=== PATIENT | male | born 1965 | race Caucasian/White ===

== ENCOUNTER 2016-09-03 13:57 | Outpatient (CLI) | payer OTHER ==
[~2016-09-03 13:57] MED LIST: FLUOXETINE HCL20 MG PO; PRILOSEC20 MG PO; PROAIR HFA IN
--- NOTE | 2016-09-04 12:43 | DIAGNOSTIC IMAGING REPORT ---
PROCEDURE: US LTD BREAST ULTRASOUND - LT INDICATION: Retroareolar left breast pain. TECHNIQUE: High resolution vlalecillo scale and color Doppler sonographic images of the left breast with limited comparison images of the right breast. COMPARISON: None. FINDINGS: There is a 12 mm hypoechoic area in the retroareolar region of the left breast with increased vascularity. Findings are compatible with gynecomastia. No evidence of underlying abnormality IMPRESSION: 1. Asymmetric left breast gynecomastia. 2. Findings discussed with the patient including the possibility of similar changes developing in the right breast. 3. Findings discussed with BETTE Mercado (covering for BETTE Ross). RESULT CODE: 2- Benign finding(s). A. A negative report should not delay biopsy if a dominant or clinically suspicious mass is present. 10-15% of cancers are not identified by x-ray. B. A negative report may reinforce clinical impression. C. Adenosis and dense breasts may obscure an underlying neoplasm. D. False positive reports average 6-10%. E.. A yearly screening mammogram is recommended. A reminder letter will be scheduled.
--- NOTE | 2016-09-04 12:43 | DIAGNOSTIC IMAGING REPORT ---
PROCEDURE: US LTD BREAST ULTRASOUND - LT INDICATION: Retroareolar left breast pain. TECHNIQUE: High resolution vallecillo scale and color Doppler sonographic images of the left breast with limited comparison images of the right breast. COMPARISON: None. FINDINGS: There is a 12 mm hypoechoic area in the retroareolar region of the left breast with increased vascularity. Findings are compatible with gynecomastia. No evidence of underlying abnormality IMPRESSION: 1. Asymmetric left breast gynecomastia. 2. Findings discussed with the patient including the possibility of similar changes developing in the right breast. 3. Findings discussed with BETTE Mercado (covering for BETTE Ross). RESULT CODE: 2- Benign finding(s). A. A negative report should not delay biopsy if a dominant or clinically suspicious mass is present. 10-15% of cancers are not identified by x-ray. B. A negative report may reinforce clinical impression. C. Adenosis and dense breasts may obscure an underlying neoplasm. D. False positive reports average 6-10%. E.. A yearly screening mammogram is recommended. A reminder letter will be scheduled.
== END 2016-09-03 23:00 ==
LOC: US SRH 13:57
DX: N62 Hypertrophy of breast (principal)

== ENCOUNTER 2016-11-01 13:51 | Outpatient (CLI) | payer OTHER ==
--- NOTE | 2016-11-01 16:42 | DIAGNOSTIC IMAGING REPORT ---
PROCEDURE: MG BILATERAL DIAGNOSTIC W/CAD INDICATION: LEFT CHEST WALL PAIN AND MASS TECHNIQUE: Standard CC and MLO views of each breast. CAD was used. The patient then went on to ultrasound where vallecillo scale and color Doppler sonographic imaging of the left breast with right for comparison was performed. COMPARISON: 09/03/2016 FINDINGS: Mammograms: Moderately dense heterogeneous glandular tissue is present in the central and lateral left breast. There is a trace amount of retroareolar glandular tissue on the right. No discrete mass, suspicious architectural distortion, or unusual microcalcification. Ultrasound: Dendritic dense glandular tissue in the retroareolar left breast is seen, stable to minimally increased in extent compared to the previous study. There is persistent, stable hyperemia through the glandular tissue. Much smaller amount of retroareolar glandularity is seen in the right breast with mild vascularity. No significant changes since the previous study. No new mass. IMPRESSION: 1. Changes of asymmetric, moderate left breast gynecomastia, minimally increased compared to the previous study. 2. Small amount of right breast gynecomastia. 3. No mammographic or sonographic evidence of malignancy. 4. Clinical follow-up as needed. Findings and recommendations were discussed with the patient. RESULT CODE: 1- Negative.
== END 2016-11-01 23:00 ==
LOC: MAM SRH 13:51
DX: R07.89 Other chest pain (principal); N62 Hypertrophy of breast

== ENCOUNTER → 2016-12-29 | Outpatient (CLI) | payer OTHER ==
[~2016-12-29] MED LIST changes: +ADVAIR DISKU1 INH; +NORCO1 TA1 PO; +ZYRTEC ALLERGY10 MG PO
--- NOTE | 2016-12-29 12:38 | DIAGNOSTIC IMAGING REPORT ---
PROCEDURE: MR CERVICAL SPINE W/O CONT INDICATION: CERVICAL RADICULOPATHY LEFT TECHNIQUE: Noncontrast T1, T2, and STIR sagittal images. T2 and gradient axial images. COMPARISON: None. FINDINGS: Normal alignment without fracture or suspicious osseous lesion. Moderately severe C5-6 and C6-7 disc vertebral degenerative changes. Straightening of the cervical spine. Normal craniocervical junction and cord. C2-3: Minor disc bulge. Facet arthropathy with mild bilateral foraminal stenosis. No spinal stenosis. C3-4: Moderate left foraminal disc bulge/spur complex with facet arthropathy with moderate left foraminal stenosis. No spinal stenosis. C4-5: Moderate left foraminal disc bulge/spur complex and facet arthropathy resulting in moderate left foraminal stenosis. Mild spinal stenosis. C5-6: Large broad-based disc bulge/spur complex and facet arthropathy with moderate right and severe left foraminal stenosis. There is mild spinal stenosis. C6-7: Large broad-based disc bulge/spur complex with facet arthropathy with moderate right and severe left foraminal stenosis. Mild spinal stenosis. C7-T1: Normal appearance. IMPRESSION: 1. Moderately severe degenerative changes with multilevel disc bulges most prominent at C5-6 and C6-7. 2. Straightening of the cervical spine suggestive of muscular spasm 3. Mild bilateral C2-3, moderate left C3-4, C4-5, moderate right and severe left C5-6, and moderate right and severe left C6-7 foraminal stenosis 4. Mild spinal stenosis at C4-5, C5-6 and C6-7.
== END ==
LOC: MRI SRH 09:20
DX: M47.812 Spondylosis without myelopathy or radiculopathy, cervical region (principal); M50.222 Other cervical disc displacement at C5-C6 level; M50.223 Other cervical disc displacement at C6-C7 level

== ENCOUNTER 2017-01-02 08:23 | Observation (INO) | payer OTHER ==
[~2017-01-02] VITALS: Ht 182.9 cm; Wt 107.5 kg
[~2017-01-02 08:23] MED LIST changes: -ADVAIR DISKU1 INH; -NORCO1 TA1 PO; -ZYRTEC ALLERGY10 MG PO
--- NOTE | 2017-01-02 10:34 | DIAGNOSTIC IMAGING REPORT ---
PROCEDURE: ABDOMEN/PELVIS WITH CONTRAST CLINICAL INDICATION: ABDOMINAL PAIN TECHNIQUE: 125 ml of Isovue 300 were injected intravenously and axial images were obtained of the abdomen and pelvis with sagittal and coronal reformations. COMPARISON: None. FINDINGS: ABDOMEN: Mild hepatomegaly and moderate hepatic steatosis. Relative sparing in the gallbladder fossa. Clear lung bases. Normal sized heart. No hiatal hernia. The liver, gallbladder, adrenal glands, kidneys, pancreas and spleen are normal. The abdominal aorta is normal in its course and caliber. No atherosclerosis. There are no suspicious calcifications, retroperitoneal adenopathy or masses. The stomach, upper bowel loops, and mesentery are normal. There is a fat containing umbilical hernia with surrounding subcutaneous inflammation. There is stranding of the herniated fat and trace stranding within the periumbilical intraperitoneal fat. The neck is approximately 7 mm in greatest diameter. PELVIS: The appendix and pelvic small bowel loops are normal. Normal amount of stool in the colon and rectum. The prostate gland, seminal vesicles, urinary bladder, and pelvic vessels are normal. No adenopathy, free fluid, or pelvic mass. Intact osseous structures. IMPRESSION: 1. Incarcerated fat containing umbilical hernia with a narrow neck. 2. Mild hepatomegaly and moderate hepatic steatosis. 3. Discussed with Dr. Conner in the emergency room. All CT scans at this facility use dose modulation, iterative reconstruction, and/or weight-based dosing when appropriate to reduce radiation dose to as low as reasonably achievable.
--- NOTE | 2017-01-02 10:37 | ED CLINICAL REPORT ---
Clinical Report - Physicians/Mid Levels [facility] [address] [place] [address] 01/02/2017 8:23 [id number] Time Seen: 08:33 Jan 02 2017. Arrived- By private vehicle. Historian- patient. HISTORY OF PRESENT ILLNESS Chief Complaint: ABDOMINAL PAIN. At its maximum, severity described as moderate. When seen in the E.D., severity described as moderate. Modifying factors- worsened by movement. Relieved by rest. It is described as "pain". No radiation. It is described as located in the periumbilical area. 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 and is still present. It was gradual in onset and has been waxing/waning. The patient has had nausea. No vomiting or diarrhea. Similar symptoms previously: None. Recent medical care: Not recently seen/assessed. REVIEW OF SYSTEMS No black stools, hematemesis, difficulty with urination, pain with urination or urinary frequency. No bloody stools, fever, headache, sore throat or chest pain. No difficulty breathing or cough. The patient has had mild back pain. It has been similar to previous symptoms. All systems otherwise negative, except as recorded above. PAST HISTORY Carpal Bone Fracture. Vomiting. Gastritis. Gastroesophageal Reflux Disease. Depression. Anxiety Reaction. URI. Asthma SURGERIES: Right shoulder surgery. Shoulder Surgery. Medications: Albuterol Sulfate HFA Inhalation 2 puffs, 4x a day. PriLOSEC Oral 20 mg, daily. Allergies: Aspirin. SOCIAL HISTORY Never smoker. Alcohol use. Patient is a longstanding alcoholic. History of drug use: marijuana. Is a local resident. ADDITIONAL NOTES The nursing notes have been reviewed. PHYSICAL EXAM Vital Signs: 01/02/2017 08:29 BP: 135/78. HR: 97. RR: 19. O2 saturation: 98%. Temp: 98.1 F. Pain level now: 8/10. Appearance: Alert. Oriented X3. Patient in moderate distress. Eyes: Pupils equal, round and reactive to light. Eyes normal inspection. No scleral icterus or pale conjunctivae. ENT: Pharynx normal. No pharyngeal erythema or tonsillar exudate. The mucous membranes are not dry. Neck: Normal inspection. Neck supple. CVS: Heart sounds normal. Pulses normal. Respiratory: No respiratory distress. Breath sounds normal. Abdomen: Moderate tenderness in the periumbilical area (redness and small mass palpated over the umbilicus (inferior aspect)). Moderate, tender mass present in the suprapubic area. No pulsatile mass present. No rebound tenderness, distention or guarding. The bowel sounds are not abnormal. Back: Normal inspection. Skin: Skin warm and dry. Extremities: Extremities exhibit normal ROM. No lower extremity edema. Neuro: No motor deficit. LABS, X-RAYS, AND EKG EKG: EKG time: (10:29). Normal sinus rhythm. Rate: 85. Normal P waves. Normal SHERIN. Normal QRS complex. Normal axis. Normal ST and T waves. The study has been interpreted contemporaneously by me. The EKG appears to be a good tracing. Chest X-ray: No acute disease. Normal lung markings present. Normal heart size. Mediastinum normal. Great vessels normal. No infiltrate. Views: AP (portable). Technique: good. The X-rays were interpreted contemporaneously by me. Laboratory Tests: UA-Culture if indicated: (CONSUELO: 01/02/2017 09:41) ( MsgRcvd 01/02/2017 10:04) Final results Test Result Flag Units (Reference) URINE COLOR YELLOW URINE APPEARANCE CLEAR URINE GLUCOSE NEGATIVE (NEGATIVE) URINE BILIRUBIN NEGATIVE (NEGATIVE) URINE KETONE NEGATIVE (NEGATIVE) URINE SPECIFIC GRAVITY <= 1.005 L (1.010-1.030) URINE PH 6.0 (5.0-8.0) URINE PROTEIN NEGATIVE (NEGATIVE) URINE UROBILINOGEN 0.2 EU/dL (0.2-1.0) URINE NITRITE NEGATIVE (NEGATIVE) URINE BLOOD NEGATIVE (NEGATIVE) URINE LEUK ESTERASE NEGATIVE (NEGATIVE) URINE RBC RARE rbc/hpf (0-1) URINE WBC NONE SEEN wbc/hpf (0-1) URINE EPITHELIAL CELLS NONE SEEN EPI/hpf (0-5) URINE BACTERIA NONE SEEN (NONE SEEN) URINE COMMENT CULT NOT INDICATED URINE CULTURES ARE SET-UP BASED ON THE FOLLOWING CRITERIA:POSITIVE NITRITEPOSITIVE LEUKOCYTE ESTERASEGREATER THAN 10 WHITE BLOOD CELLSMODERATE (2+) OR GREATER BACTERIA CBC w Diff: (CONSUELO: 01/02/2017 08:54) ( MsgRcvd 01/02/2017 09:03) Final results Test Result Flag Units (Reference) WHITE BLOOD COUNT 9.9 K/uL (4.5-11.5) RED BLOOD COUNT 4.51 M/uL (4.50-5.90) HEMOGLOBIN 14.8 gm/dL (13.5-17.5) HEMATOCRIT 42.8 % (41.0-53.0) MEAN CELL VOLUME 95 fL (80-100) MEAN CORPUSCULAR HGB 33 pg (26-34) MEAN CORPUSCULAR HGB CONC 35 g/dL (31-37) RED CELL DISTRIBUTION WIDTH 12.6 % (11.6-14.8) PLATELET COUNT 234 K/uL (150-400) NEUTROPHIL % 67.9 % (50-75) LYMPH % 26.0 % (25-40) MONO % 4.9 % (3-14) EOSINOPHIL % 0.8 % (0-4) BASOPHIL % 0.4 % (0-2) Urine Drug Screen: (CONSUELO: 01/02/2017 09:41) ( MsgRcvd 01/02/2017 10:06) Final results Test Result Flag Units (Reference) AMPHETAMINE/METHAMPHETAMINE NEGATIVE (NEGATIVE) BARBITURATE NEGATIVE (NEGATIVE) BENZODIAZEPINE NEGATIVE (NEGATIVE) CANNABINOID POSITIVE H (NEGATIVE) COCAINE NEGATIVE (NEGATIVE) ECSTASY NEGATIVE (NEGATIVE) METHADONE NEGATIVE (NEGATIVE) OPIATE NEGATIVE (NEGATIVE) The urine drug screen is a qualitative screening test fordrug overdose and abuse. All screen results should beconsidered as presumptive.Drugs screened for are as follows:BenzodiazepinesCocaineAmphetamines/MetamphetaminesTHC (Tetrahydrocannabinol)OpiatesBarbituratesEcstasyMethadonePositive results are unconfirmed. For confirmation, notifythe lab for the specimen to be sent to the reference lab.All confirmations must be performed by a differentmethodology.The ingestion of natural herbal and plant productscontaining Ephedra/Ephedra metabolites can produce in urineone or more substances capable of cross reacting withamphetamine/methamphetamine immunoassays. These testsprovide a preliminary result only. A more specificalternative chemical method must be used to obtain aconfirmed analytical result. Lipase: (CONSUELO: 01/02/2017 08:54) ( MsgRcvd 01/02/2017 09:51) Final results Test Result Flag Units (Reference) LIPASE 126 U/L (73-393) AMYLASE 39 U/L (25-115) CMP: (CONSUELO: 01/02/2017 08:54) ( MsgRcvd 01/02/2017 09:30) Final results Test Result Flag Units (Reference) GLUCOSE 133 H mg/dL (70-110) BUN 11 mg/dL (7-18) CREATININE 0.8 mg/dL (0.6-1.3) Estimated GFR >60 mL/min Estimated GFR- >60 mL/min Note: Persistent reduction over 3 months in eGFR<60 mL/min/1.73 m2 defines CKD. Patients with eGFR values>=60 mL/min/1.73 m2 may also have CKD if evidence ofpersistent proteinuria. Additional information may be foundat www.kidney.org. SODIUM 143 mmol/L (136-145) POTASSIUM 3.5 mmol/L (3.5-5.1) CHLORIDE 106 mmol/L (98-107) CARBON DIOXIDE 26 mmol/L (21-32) CALCIUM 8.6 mg/dL (8.5-10.1) TOTAL PROTEIN 7.2 g/dL (6.4-8.2) ALBUMIN 3.7 g/dL (3.3-5.0) BILIRUBIN, TOTAL 0.4 mg/dL (0.0-1.0) ALKALINE PHOSPHATASE 59 U/L (46-116) AST (SGOT) 30 U/L (15-37) ALT (SGPT) 58 U/L (12-78) . Pulse Oximetry: 01/02/2017 08:29 O2 saturation: 98%. (FIO2 - room air). Interpretation: normal. PROGRESS AND PROCEDURES Course of Care: Normal Saline 1 liter IVPB given. Zofran 4 mg IVP given. Dilaudid 0.5 mg + 0.5 mg IVP given. 09:00. Care transferred from Dr Thakur to myself secondary to shift change Pt with incarcerated umbilical hernia and will need surgical treatment. No bowel issues. Discussed case with on-call health care provider, (Huong call placed 10:32 call returned 10:36 call placed 10:48 call returned 10:50). Reviewed test results. Agreed upon treatment plan. Health care provider will see patient in hospital. Refers case to other health care provider. Discussed case with health care provider (Chelsea call placed 10:37 - states he is "maxed out and this is my last patient" - will request Dr Borja admit). Reviewed test results. Agreed upon treatment plan. Refers case to other health care provider. Patient/family counseled. Old ED records reviewed. Transition orders written. Disposition: Observation in Acute Care. Condition: stable and improved. CLINICAL IMPRESSION Chronic substance abuse- alcohol, marijuana. No intoxication, delusions or anxiety. Incarcerated umbilical hernia. No reducible hernia, recurrent hernia, obstruction or gangrene. (Electronically signed by Timothy Conner DO 01/02/2017 13:31)
--- NOTE | 2017-01-02 10:37 | ED ORDER SUMMARY ---
..... Patient: HAM WILLIAM OrderSheet [facility] VisitID: [id number] [place] [address] 51y, M Registration Date/Time: 01/02/2017 ORDER SHEET Weight: 104.3 kg (stated) Allergies: Aspirin GENERAL ORDERS: CT Abd/Pel w Cont (No) (pending) Urgent (08:01/02/2017 Hector CLAUDIO) (Ack 8:38 KHoerner) (8:57 KPage-Kuchan R.N.) CBC w Diff Urgent (:01/02/2017 Hector CLAUDIO) (Ack 8:38 KHoerner) (8:57 KPage-Kuchan R.N.) CMP Urgent (:01/02/2017 Hector CLAUDIO) (Ack 8:38 KHoerner) (8:57 KPage-Kuchan R.N.) Amylase Urgent (09:01/02/2017 PHutchinson DO) (Ack 9:24 KHoerner) (9:40 KHoerner) Lipase Urgent (:01/02/2017 PHutchinson DO) (Ack 9:24 KHoerner) (9:40 KHoerner) Urine Drug Screen Urgent (09:01/02/2017 PHutchinson DO) (Ack 9:24 KHoerner) (9:40 KHoerner) UA-Culture if indicated Urgent (09:01/02/2017 PHutchinson DO) (Ack 9:24 KHoerner) (9:40 KHoerner) Chest 1V Urgent (10:01/02/2017 PHutchinson DO) (Ack 10:22 KHoerner) (10:42 KPage-Kuchan R.N.) EKG - ER Stat (:01/02/2017 PHchinson DO) (Ack 10:22 KHoerner) (10:30 TBergley) Call (Place call to): (Dr Borja) (10:33 01/02/2017 PHutchinson DO) (Ack 10:35 KHoerner) (10:36 KHoerner) Ice (to umbilical area) (10:34 01/02/2017 [facility]) (10:42 Mabel R.N.) Call (Place call to): (Dr Tran) (10:38 01/02/2017 [facility]) (Ack 10:40 KHoerner) (10:40 KHoerner) MEDICATION ORDERS: IV FLUIDS: IV NS : initial bolus 500 mL (1000 mL/hr), then 250 mL/hr for 2h (NOW); Routine (08:37 01/02/2017 Hector CLAUDIO) (8:59 Mabel R.N.) Dilaudid IV 0.5 mg (NOW) (08:37 01/02/2017 Hector CLAUDIO) (8:59 Mabel R.N.) Zofran IV 4 mg (NOW) (08:37 01/02/2017 Hector CLAUDIO) (8:59 Mabel R.N.) Dilaudid IV 0.5 mg (may repeat x 1 prn pain) (09:30 01/02/2017 [facility]) (10:01 Mabel R.N.) IV NS with Normal Saline 1 Liter: initial bolus none -, then 250 mL/hr for X1 (NOW) (13:04 01/02/2017 Mabel R.N. verbal order read back to [facility]) (13:06 Mabel R.N.) ORDER SHEET NOTES: [Electronically signed by Sonja Correa R.N. (13:13 01/02/2017)] [Electronically signed by Timothy Conner DO (13:31 01/02/2017)] [Electronically locked/signed by Sonja Correa R.N. (13:13 01/02/2017)]
--- NOTE | 2017-01-02 10:37 | ED NURSING NOTES ---
Clinical Report - Nurses [facility] [address] [place] [address] 01/02/2017 8:23 Patient: HAM WILLIAM TRIAGE Triage time 08:Jan 02 2017. Chief Complaint: ABDOMINAL PAIN and (pt with 3 days of isauro umbilical pain "feels like a golf ball is under it, the lump is getting bigger, bigger"). Alert. No acute distress. SEPSIS SCREEN: Sepsis Screen. Negative (no infection suspected/documented). --08:36 Sonja Correa R.N. 08:29 01/02/17. BP: 135/78. HR: 97. RR: 19. O2 saturation: 98%. Temp: 98.1 F. Pain level now: 03/28. --08:36 Sonja Correa R.N. Weight: 104.3 kg stated. Height/Length: 74 inches Per Patient. BMI: 29.5. --08:32 Sonja Correa R.N. Medications Albuterol Sulfate HFA Inhalation 2 puffs, 4x a day. PriLOSEC Oral 20 mg, daily. --08:33 Sonja Correa R.N. Allergies Aspirin. --08:33 Sonja Correa R.N. History Arrived by private vehicle. Historian: patient. Onset. (3 days ago). 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 PAST MEDICAL HX: Immunizations: up-to-date. SOCIAL HX: Never smoker. Alcohol use; consumes three liquor daily. Last drink was less than 24 hours ago. ("I'm an alcoholic"). History of drug use: marijuana. No recent travel. No known contact with a sick individual. ABUSE ASSESSMENT: No report of abuse. SELF HARM ASSESSMENT: A self harm assessment was performed. The patient answered "no" to the question "Have you recently felt down, depressed, or hopeless?", "Have you noticed less interest or pleasure in doing things?", "Do you have thoughts of harming or killing yourself?", "Are you here because you tried to hurt yourself?", "Have you ever tried to hurt yourself before today?", "Have you recently had thoughts about harming or killing others?" and "Do you have any dangerous items in your possession?". FALL RISK ASSESSMENT: Fall risk assessment completed. No fall risk identified. NUTRITIONAL RISK ASSESSMENT: The nutritional risk assessment revealed no deficiencies. FUNCTIONAL ASSESSMENT: Functional assessment: no impairments noted. LEARNING NEEDS ASSESSMENT: The learning needs assessment revealed no barriers. SKIN INTEGRITY ASSESSMENT: Skin integrity risk assessment completed. No skin integrity risk identified. --08:36 Sonja Correa R.N. PROBLEMS: Abnormal Liver Function Test. Myofascial Strain. Carpal Bone Fracture. Gastritis. Gastroesophageal Reflux Disease. Reflux. Depression. Anxiety Reaction. URI. Asthma. --08:33 Sonja Correa R.N. ADDITIONAL SURGERIES: Right shoulder surgery. --08:33 Sonja Correa R.N. Interventions ID and allergy band on patient. To treatment room. --08:36 Sonja Correa R.N. PHYSICAL ASSESSMENT Ambulatory to room. Patient gowned. GENERAL / NEURO / PSYCH: Alert. Oriented X 4. Appears in pain. HEENT: Mucous membranes are pink. RESPIRATORY: Respirations not labored. Breath sounds within normal limits. CVS: Capillary refill less than 2 seconds. GI / : Abdomen soft. Abdominal tenderness in the periumbilical area. Bowel sounds within normal limits. SKIN: Skin is warm and dry. --08:36 Sonja Correa R.N. NURSING PROGRESS NOTES Pulse oximeter and NIBP monitor placed on patient. Patient gowned. Head of bed elevated. Two patient identifiers checked. Call light placed in reach. Side rails up x 1. Bed placed in lowest position. Brakes of bed on. Patient ready for evaluation- chart flagged. ( at bedside). --08:37 Sonja Correa R.N. 08:48 01/02/2017 Site #1 started via IV in the right forearm with an 20g angiocath; one attempt. Blood drawn: rainbow set. Labeled in the presence of the patient and sent to the lab. Saline lock flushed with 10 mL saline. --08:58 Sonja Correa R.N. 08:48 01/02/2017 Started bag #1 1000 mL IV Fluids IV NS (Saline); at 500 mL/hr via site #1 via IV pump. Allergies verified and confirmed 5 rights. IV patency established. IV site checked: no pain, redness, or swelling. IV flushed thoroughly pre- and post-medication administration. --08:59 Sonja Correa R.N. 08:54 01/02/2017 Dilaudid (HYDROmorphone HCl PF) IVP 0.5 mg given. via site #1. Allergies verified, confirmed 5 rights and sedative warning given to the patient. IV patency established. IV site checked: no pain, redness, or swelling. IV flushed thoroughly pre- and post-medication administration. IVP given by RN. --08:59 Sonja Correa R.N. 08:54 01/02/2017 Zofran (Ondansetron HCl) IVP 4 mg given. via site #1. Allergies verified and confirmed 5 rights. IV patency established. IV site checked: no pain, redness, or swelling. IV flushed thoroughly pre- and post-medication administration. IVP given by RN. --08:59 Sonja Correa R.N. Pulse oximeter and NIBP monitor placed on patient; (monitoring pulse ox as pt given narcotic pain meds). Call light placed in reach. Side rails up. Bed placed in lowest position. Brakes of bed on. ( pt provided urinal to void,). --09:25 Sonja Correa R.N. ( pt reports "Not much change, it still really hurts" notified with order to repeat pain meds). --09:32 Sonja Correa R.N. 09:01 01/02/2017 Dilaudid IVP Response: no adverse reaction symptoms are the same. The patient feels the same. --10:01 Sonja Correa R.N. 09:02 01/02/2017 Zofran IVP Response: no adverse reaction. --10:02 Sonja Correa R.N. 09:34 01/02/2017 Dilaudid (HYDROmorphone HCl PF) IVP 0.5 mg given. via site #1. Sedative warning given to the patient and patient's family. IV patency established. IV site checked: no pain, redness, or swelling. IV flushed thoroughly pre- and post-medication administration. IVP given by RN. --10:01 Sonja Correa R.N. 10:30 01/02/17. EKG time: (1029 AM). EKG was ordered, performed by a tech and shown to the ED physician. --10:30 Janine Reyna ( pt remains with pain 01/26, ice bag to abd per MD, plan is for pt to admit to hospital. family at bedside). --10:48 Sonja Correa R.N. 09:44 01/02/17. BP: 136/94. HR: 87. RR: 17. O2 saturation: 98% on room air. --10:48 Sonja Correa R.N. 10:48 01/02/17. BP: 134/88. HR: 79. RR: 17. O2 saturation: 97%. --10:48 Sonja Correa R.N. 11:07 01/02/2017 IV Fluids IV NS Discontinued: STOPPED. Total amount infused: 1000 mL. IV patency established. IV site checked: no pain, redness, or swelling. IV flushed thoroughly. --13:07 Sonja Correa R.N. 11:23 01/02/2017 Started bag #2 1000 mL IV Fluids IV NS (Saline); at 250 mL/hr via site #1 via dial-a-flow. Allergies verified. IV patency established. IV site checked: no pain, redness, or swelling. IV flushed thoroughly pre- and post-medication administration. --13:06 Sonja Correa R.N. 13:06 01/02/2017 IV Fluids IV NS Continued: at the rate of 250 mL/hr. 575 mL remaining bag #2. IV patency established. IV site checked: no pain, redness, or swelling. IV flushed thoroughly. --13:06 Sonja Correa R.N. Intake & Output IV fluids: 1500 mL. Urine: 825 mL, with return of yellow-colored clear urine. --13:00 Sonja Correa R.N. DISPOSITION / DISCHARGE Admitted to Acute Care ( B). Transported via stretcher by [facility]. Report was given to a nurse via a phone call. Report included patient's care, treatment, medications, reviewed medication reconcilliation, and condition (including any recent changes or anticipated changes). All questions were answered. Report was acknowledged and care was transferred. (Viviana HESS). --12:48 Sonja Correa R.N. Condition at departure: improved. ( preparing pt for transport to ). --12:52 Sonja Correa R.N. 12:51 01/02/17. BP: 125/91. HR: 81. RR: 17. O2 saturation: 97%. Pain level now: 11/26. --12:52 Sonja Correa R.N. Locked/Released at 01/02/2017 13:13 by Sonja Correa R.N.
--- NOTE | 2017-01-02 10:37 | ED ORDER SUMMARY ---
..... Patient: HAM WILLIAM OrderSheet [facility] VisitID: [id number] [place] [address] 51y, M Registration Date/Time: 01/02/2017 ORDER SHEET Weight: 104.3 kg (stated) Allergies: Aspirin GENERAL ORDERS: CT Abd/Pel w Cont (No) (pending) Urgent (08:01/02/2017 Hector CLAUDIO) (Ack 8:38 KHoerner) (8:57 KPage-Kuchan R.N.) CBC w Diff Urgent (:01/02/2017 Hector CLAUDIO) (Ack 8:38 KHoerner) (8:57 KPage-Kuchan R.N.) CMP Urgent (:01/02/2017 Hector CLAUDIO) (Ack 8:38 KHoerner) (8:57 KPage-Kuchan R.N.) Amylase Urgent (09:01/02/2017 PHutchinson DO) (Ack 9:24 KHoerner) (9:40 KHoerner) Lipase Urgent (:01/02/2017 PHutchinson DO) (Ack 9:24 KHoerner) (9:40 KHoerner) Urine Drug Screen Urgent (09:01/02/2017 PHutchinson DO) (Ack 9:24 KHoerner) (9:40 KHoerner) UA-Culture if indicated Urgent (09:01/02/2017 PHutchinson DO) (Ack 9:24 KHoerner) (9:40 KHoerner) Chest 1V Urgent (10:01/02/2017 PHutchinson DO) (Ack 10:22 KHoerner) (10:42 KPage-Kuchan R.N.) EKG - ER Stat (:01/02/2017 PHchinson DO) (Ack 10:22 KHoerner) (10:30 TBergley) Call (Place call to): (Dr Borja) (10:33 01/02/2017 PHutchinson DO) (Ack 10:35 KHoerner) (10:36 KHoerner) Ice (to umbilical area) (10:34 01/02/2017 [facility]) (10:42 Mabel R.N.) Call (Place call to): (Dr Tran) (10:38 01/02/2017 [facility]) (Ack 10:40 KHoerner) (10:40 KHoerner) MEDICATION ORDERS: IV FLUIDS: IV NS : initial bolus 500 mL (1000 mL/hr), then 250 mL/hr for 2h (NOW); Routine (08:37 01/02/2017 Hector CLAUDIO) (8:59 Mabel R.N.) Dilaudid IV 0.5 mg (NOW) (08:37 01/02/2017 Hector CLAUDIO) (8:59 Mabel R.N.) Zofran IV 4 mg (NOW) (08:37 01/02/2017 Hector CLAUDIO) (8:59 Mabel R.N.) Dilaudid IV 0.5 mg (may repeat x 1 prn pain) (09:30 01/02/2017 [facility]) (10:01 Mabel R.N.) IV NS with Normal Saline 1 Liter: initial bolus none -, then 250 mL/hr for X1 (NOW) (13:04 01/02/2017 Mabel R.N. verbal order read back to [facility]) (13:06 Mabel R.N.) ORDER SHEET NOTES: [Electronically signed by Sonja Correa R.N. (13:13 01/02/2017)] [Electronically signed by Timothy Conner DO (13:31 01/02/2017)] [Electronically locked/signed by Sonja Correa R.N. (13:13 01/02/2017)]
--- NOTE | 2017-01-02 11:22 | DIAGNOSTIC IMAGING REPORT ---
PROCEDURE: XR CHEST 1 VIEW INDICATION: PRE OP TECHNIQUE: Portable AP view 11:00 a.m. COMPARISON: None. FINDINGS: Lungs are clear. Heart and mediastinum are normal. Thorax is normal. IMPRESSION: 1. Negative chest.
--- NOTE | 2017-01-02 13:32 | ED MAR SUMMARY ---
..... Medication Administration Record [facility] [address] [place] [address] Patient: HAM WILLIAM Visit ID: [id number] 51y, M Weight: 104.3 kg Height/Length: 74 in BMI: 29.5 ALLERGIES: Aspirin Start 08:48 01/02/2017 Sonja Correa R.N., Stop 11:07 01/02/2017 Sonja Correa R.N. Medication Administered: IV NS (SALINE), Dose: IV Fluids, Rate: 500 mL/hr, Dispensed: 1000 mL bag, Site: #1 right forearm. Medication Ordered: IV NS : initial bolus 500 mL (1000 mL/hr), then 250 mL/hr for 2h (NOW); Routine. Given 08:54 01/02/2017 Sonja Correa R.N. Medication Administered: DILAUDID [IVP] (HYDROMORPHONE HCL PF), Dose: 0.5 mg IVP, Site: #1 right forearm. Medication Ordered: Dilaudid IV 0.5 mg (NOW). Given 08:54 01/02/2017 Sonja Correa R.N. Medication Administered: ZOFRAN [IVP] (ONDANSETRON HCL), Dose: 4 mg IVP, Site: #1 right forearm. Medication Ordered: Zofran IV 4 mg (NOW). Given 09:34 01/02/2017 Sonja Correa R.N. Medication Administered: DILAUDID [IVP] (HYDROMORPHONE HCL PF), Dose: 0.5 mg IVP, Site: #1 right forearm. Medication Ordered: Dilaudid IV 0.5 mg (may repeat x 1 prn pain). Start 11:23 01/02/2017 Sonja Correa R.N., Continued Upon Disposition 13:06 01/02/2017 Sonja Correa R.N. Medication Administered: IV NS (SALINE), Dose: IV Fluids, Rate: 250 mL/hr, Dispensed: 1000 mL bag, Site: #1 right forearm. Medication Ordered: IV NS with Normal Saline 1 Liter: initial bolus none -, then 250 mL/hr for X1 (NOW).
--- NOTE | 2017-01-02 13:32 | ED MAR SUMMARY ---
..... Medication Administration Record [facility] [address] [place] [address] Patient: HAM WILLIAM Visit ID: [id number] 51y, M Weight: 104.3 kg Height/Length: 74 in BMI: 29.5 ALLERGIES: Aspirin Start 08:48 01/02/2017 Sonja Correa R.N., Stop 11:07 01/02/2017 Sonja Correa R.N. Medication Administered: IV NS (SALINE), Dose: IV Fluids, Rate: 500 mL/hr, Dispensed: 1000 mL bag, Site: #1 right forearm. Medication Ordered: IV NS : initial bolus 500 mL (1000 mL/hr), then 250 mL/hr for 2h (NOW); Routine. Given 08:54 01/02/2017 Sonja Correa R.N. Medication Administered: DILAUDID [IVP] (HYDROMORPHONE HCL PF), Dose: 0.5 mg IVP, Site: #1 right forearm. Medication Ordered: Dilaudid IV 0.5 mg (NOW). Given 08:54 01/02/2017 Sonja Correa R.N. Medication Administered: ZOFRAN [IVP] (ONDANSETRON HCL), Dose: 4 mg IVP, Site: #1 right forearm. Medication Ordered: Zofran IV 4 mg (NOW). Given 09:34 01/02/2017 Sonja Correa R.N. Medication Administered: DILAUDID [IVP] (HYDROMORPHONE HCL PF), Dose: 0.5 mg IVP, Site: #1 right forearm. Medication Ordered: Dilaudid IV 0.5 mg (may repeat x 1 prn pain). Start 11:23 01/02/2017 Sonja Correa R.N., Continued Upon Disposition 13:06 01/02/2017 Sonja Correa R.N. Medication Administered: IV NS (SALINE), Dose: IV Fluids, Rate: 250 mL/hr, Dispensed: 1000 mL bag, Site: #1 right forearm. Medication Ordered: IV NS with Normal Saline 1 Liter: initial bolus none -, then 250 mL/hr for X1 (NOW).
--- NOTE | 2017-01-02 13:32 | ED DISCHARGE INSTRUCTIONS ---
Patient: HAM WILLIAM General Instructions VisitID: [id number] [address] [place] [address] 51y, M Registration Date/Time: 01/02/2017 Chronic substance abuse- alcohol, marijuana. No intoxication, delusions or anxiety. Incarcerated umbilical hernia. No reducible hernia, recurrent hernia, obstruction or gangrene. (Electronically signed by Timothy Conner DO 01/02/2017 13:31)
--- NOTE | 2017-01-02 13:32 | ED MED RECONCILIATION SUMMARY ---
Patient: HAM WILLIAM Medication Reconciliation Report [facility] VisitID: [id number] [address] [place] [address] 51y, M Registration Date/Time: 01/02/2017 Weight: 104.3 kg Height/Length: 74 in. BMI: 29.5 ALLERGIES: Aspirin The patient's Home Medications are listed below: THE FOLLOWING MEDICATIONS NEED TO BE RECONCILED: Albuterol Sulfate HFA Inhalation 2 puffs, 4x a day PriLOSEC Oral 20 mg, daily The source(s) of the original Home Medication information: Not obtained. The following Medications were given to the patient in the Emergency Department: IV NS IV Fluids bolus 0, then 500 mL/hr, administered: 01/02/2017 8:48:00 AM Dilaudid [IVP] IVP 0.5 mg, administered: 01/02/2017 8:54:00 AM Zofran [IVP] IVP 4 mg, administered: 01/02/2017 8:54:00 AM Dilaudid [IVP] IVP 0.5 mg, administered: 01/02/2017 9:34:00 AM IV NS IV Fluids bolus 0, then 250 mL/hr, administered: 01/02/2017 11:23:00 AM The following Medications were prescribed to the patient: None.
--- NOTE | 2017-01-02 13:32 | ED DISCHARGE INSTRUCTIONS ---
Patient: HAM WILLIAM General Instructions [facility] VisitID: [id number] [address] [place] [address] 51y, M Registration Date/Time: 01/02/2017 Chronic substance abuse- alcohol, marijuana. No intoxication, delusions or anxiety. Incarcerated umbilical hernia. No reducible hernia, recurrent hernia, obstruction or gangrene. (Electronically signed by Timothy Conner DO 01/02/2017 13:31)
--- NOTE | 2017-01-02 13:32 | ED MED RECONCILIATION SUMMARY ---
Patient: HAM WILLIAM Medication Reconciliation Report [facility] VisitID: [id number] [address] [place] [address] 51y, M Registration Date/Time: 01/02/2017 Weight: 104.3 kg Height/Length: 74 in. BMI: 29.5 ALLERGIES: Aspirin The patient's Home Medications are listed below: THE FOLLOWING MEDICATIONS NEED TO BE RECONCILED: Albuterol Sulfate HFA Inhalation 2 puffs, 4x a day PriLOSEC Oral 20 mg, daily The source(s) of the original Home Medication information: Not obtained. The following Medications were given to the patient in the Emergency Department: IV NS IV Fluids bolus 0, then 500 mL/hr, administered: 01/02/2017 8:48:00 AM Dilaudid [IVP] IVP 0.5 mg, administered: 01/02/2017 8:54:00 AM Zofran [IVP] IVP 4 mg, administered: 01/02/2017 8:54:00 AM Dilaudid [IVP] IVP 0.5 mg, administered: 01/02/2017 9:34:00 AM IV NS IV Fluids bolus 0, then 250 mL/hr, administered: 01/02/2017 11:23:00 AM The following Medications were prescribed to the patient: None.
[2017-01-02 13:43] VITALS: BP 133/95
[2017-01-02] MEDS ORDERED: ZYRTEC ALLERGY10 MG PO (14:07)
[2017-01-02] MEDS ORDERED: ADVAIR DISKU1 INH (14:08)
--- NOTE | 2017-01-02 14:32 | CONSULTATION REPORT ---
DATE OF CONSULTATION: 01/02/2017 CHIEF COMPLAINT: 1. Umbilical pain HISTORY OF PRESENT ILLNESS: The patient is a 51-year-old man who presented to the emergency department with a 3-day history of periumbilical pain. This became quite severe today and he was able to relieve it. He had severe pain when bending over and tying his shoes when this first started about 3 days ago, but has now gotten unbearable. He was found on CT to have an incarcerated umbilical hernia with fat in its contents. MEDICAL/SURGICAL HISTORY: Past medical history of depression, gastritis, anxiety reaction, URIs, asthma and GERD. Past injuries: Carpal bone fracture. Past surgery: Right shoulder surgery. MEDICATIONS: 1. Albuterol inhaler 2 puffs q.i.d. 2. Prilosec 20 mg every day. ALLERGIES: 1. ASPIRIN. SOCIAL HISTORY: The patient is a local resident. There is a history of alcohol use on a regular basis. There is a history of cannabis use. He does not smoke cigarettes. FAMILY HISTORY: Not immediately available and will be added as an addendum. REVIEW OF SYSTEMS: PHYSICAL EXAMINATION: VITAL SIGNS: The patient's initial vital signs: Blood pressure 135/78, heart rate of 97, respirations 19, O2 saturation 98%. GENERAL: The patient was examined on the [facility]. He was alert and cooperative and provided appropriate history. HEENT: His ears and nose demonstrate no gross external lesions. Eyes are equal. There is no icterus. NECK: Without palpable masses or thyromegaly. CHEST: Clear to auscultation. HEART: Regular, without murmur or gallop. ABDOMEN: Reveals localized tenderness at the umbilicus with a reddish area in the inferior aspect of the umbilicus. The remaining abdomen is soft. There is no evidence of abdominal distention. Bowel sounds are normal. EXTREMITIES: Symmetric. He appeared to move without restriction. LAB/IMAGING: White count is normal at 9.9, hemoglobin and hematocrit 14.8 and 42.8, glucose is mildly elevated at 133. IMPRESSION: 1. Strangulated umbilical hernia with strangulated fat. PLAN: I recommend the patient undergo surgery today to fix the hernia and to remove or reduce the herniated contents. I explained to him the nature of the surgery as well as alternatives, benefits and risks. Risks described included infection, bleeding, scars, pain, damage to local structures such as bowel, which is unlikely here. I also explained the potential risk for recurrent hernia and other complications. The patient would like to proceed with surgery as described to him.
[2017-01-02 18:34] VITALS: BP 149/102
[2017-01-02 22:47] VITALS: BP 134/66
[2017-01-03] VITALS (8 sets, daily range): BP systolic 124–142; BP diastolic 67–100
[2017-01-03] MEDS ORDERED: NORCO1 TA1 PO (14:06)
--- NOTE | 2017-01-03 14:06 | Provider's Discharge Care Plan ---
Problem, Goal, Plan Problem List 1. Umbilical hernia
--- NOTE | 2017-01-03 14:06 | Provider's Discharge Care Plan ---
Problem, Goal, Plan Problem List 1. Umbilical hernia
--- NOTE | 2017-01-17 15:52 | OPERATIVE REPORT ---
DATE OF SURGERY: 01/03/2017 SURGEON: Timothy Borja MD PREOPERATIVE DIAGNOSIS: 1. Umbilical hernia POSTOPERATIVE DIAGNOSIS: 1. Umbilical hernia PROCEDURE PERFORMED: 1. Umbilical herniorrhaphy ANESTHESIA: General. INDICATIONS: The patient is a 51-year-old man presenting with an incarcerated painful umbilical hernia containing fat on CT scan. SURGICAL TECHNIQUE: The patient was taken to the operating room where a general anesthetic was administered and the patient prepped and draped in the usual sterile fashion. A local anesthetic of 0.5% Marcaine with epinephrine was also infiltrated around the operative site. A curved incision was made at the lower edge of the umbilicus. The umbilical hernia was found to contain strangulated, herniated preperitoneal fat. The preperitoneal fat was freed up from the surrounding tissues and excised. The stump was hemostatic. The fascia was cleared up for at least 2 cm in all directions. A piece of woven polypropylene mesh was placed underneath the fascia, and the fascial defect was closed in a transverse fashion using interrupted 2-0 polypropylene sutures, incorporating the preperitoneal retrofascial prosthetic patch. This resulted in a secure closure. The wound was irrigated and found be hemostatic. A single 4-0 Vicryl was placed from the apex of the umbilical skin back down to the fascia. The skin edges were reapproximated with interrupted and running subcuticular 4-0 Vicryl suture. Steri-Strips and a pressure dressing were applied, and the patient left in good condition. No intraoperative complications were encountered.
== END 2017-01-03 18:03 | disposition home or self-care (01) ==
LOC: ED SRH 08:23 → TRANS SRH 10:56 → ACUTE2 SRH 10:56
PROVIDERS: Surgery; ADMIT Emergency Medicine
PROC: 0WQF0ZZ Repair Abdominal Wall, Open Approach (ICD-10-PCS; principal; 2017-01-03 10:30)
DX: K42.0 Umbilical hernia with obstruction, without gangrene (principal); K21.9 Gastro-esophageal reflux disease without esophagitis; J45.909 Unspecified asthma, uncomplicated; F10.10 Alcohol abuse, uncomplicated; F12.10 Cannabis abuse, uncomplicated
CPT/HCPCS: 29229; 29230; 29259; 29264; 50004; 60001; 70002; 80102; 80212; 80852; 80866; 81238; 82572; 84038; 84518; 90004; 90100; 92235; 92530; 92760; 92761; 92762; 92763; 92764; 92765; 92766; 92767; 95059